=== PATIENT | male | born 1930 | race Caucasian/White ===

== ENCOUNTER 2016-12-09 10:54 | Outpatient (CLI) | payer MEDICARE, OTHER | END 2016-12-09 10:55 | disposition home or self-care (01) | DX: I48.91 Unspecified atrial fibrillation (principal); Z79.01 Long term (current) use of anticoagulants ==

== ENCOUNTER 2017-01-25 13:06 | Outpatient (CLI) | payer MEDICARE, OTHER | END 2017-01-25 13:07 | disposition home or self-care (01) | LOC: LAB.F 13:06 | PROVIDERS: ATTEND Internal Medicine Cardiovascular Disease | DX: I48.91 Unspecified atrial fibrillation (principal) | CPT/HCPCS: 85610 ==

== ENCOUNTER 2017-02-26 11:22 | Outpatient (CLI) | payer MEDICARE, OTHER | END 2017-02-26 11:23 | disposition home or self-care (01) | LOC: LAB.F 11:22 | PROVIDERS: ATTEND Internal Medicine Cardiovascular Disease | DX: I48.91 Unspecified atrial fibrillation (principal); Z79.01 Long term (current) use of anticoagulants | CPT/HCPCS: 85610 ==

== ENCOUNTER 2017-03-26 14:06 | Outpatient (CLI) | payer MEDICARE, OTHER | END 2017-03-26 14:07 | disposition home or self-care (01) | LOC: LAB.F 14:06 | PROVIDERS: ATTEND Internal Medicine Cardiovascular Disease | DX: I48.91 Unspecified atrial fibrillation (principal); Z79.01 Long term (current) use of anticoagulants | CPT/HCPCS: 85610 ==